=== PATIENT | female | born 1950 | race Caucasian/White ===

== ENCOUNTER → 2016-11-21 | Outpatient (CLI) | payer BC ==
[~2016-11-21] MED LIST: CALC-5 PO; CETI10TA10 PO; DASA100T PO; FLNIN NAE; MULTTAB58 PO
--- NOTE | 2016-11-21 10:35 | DIAGNOSTIC IMAGING REPORT ---
RIGHT KNEE 1 OR 2 VIEWS ROUTINE CLINICAL HISTORY: RIGHT KNEE PAIN Right trauma. Pain. COMPARISON: None. DISCUSSION: The bones and joint spaces appear intact. There is no evidence of fracture, dislocation or bony disease. There is no evidence for soft tissue swelling. IMPRESSION: Negative study. Electronically signed by: Pedro Mix M.D. 11/21/2016 10:32 AM Dictated Date/Time: 11/21/2016 10:32 AM
--- NOTE | 2016-11-21 12:01 | DIAGNOSTIC IMAGING REPORT ---
Ultrasound right axilla RIGHT EXTREMITY NONVASCULAR LIMITED CLINICAL HISTORY: LUMP ON R AXILLA/R/O CYST Right TECHNIQUE: Ultrasound COMPARISON STUDY: None FINDINGS: Ultrasound shows no evidence for well-defined mass or cyst. No significant nodular pathology based on ultrasound criteria. IMPRESSION: Negative study. In the presence of what appears be a clinically palpable nodule, diagnostic mammography is suggested, possibly with repeat ultrasound if necessary. Electronically signed by: Pedro Mix M.D. 11/21/2016 11:59 AM Dictated Date/Time: 11/21/2016 11:57 AM
== END | disposition home or self-care (01) ==
LOC: C.ULTRBC 10:15
PROVIDERS: ATTEND Nurse Practitioner Family
DX: R22.30 Localized swelling, mass and lump, unspecified upper limb (principal); M25.561 Pain in right knee; Z87.828 Personal history of other (healed) physical injury and trauma

== ENCOUNTER → 2016-12-05 | Outpatient (CLI) | payer BC ==
--- NOTE | 2016-12-05 13:32 | MAMMOGRAPHY REPORT ---
BILATERAL DIGITAL DIAGNOSTIC MAMMOGRAM TOMOSYNTHESIS WITH CAD AND TARGETED BILATERAL ULTRASOUND: 11/16 CLINICAL HISTORY: The patient reports a palpable lump in her right axillary region for a few weeks. She also had some associated burning and itching. She denies any skin erythema or other complaints . TECHNIQUE: Breast tomosynthesis in addition to standard 2D mammography was performed. Current study was also evaluated with a Computer Aided Detection (CAD) system. Bilateral CC and MLO 2-D and catia synthesis images were obtained. COMPARISON: Comparison is made to exams dated: 02/09/2015 mammogram, 06/14/2013 mammogram, 04/27/2012 mammogram, 02/24/2011 mammogram, 02/12/2010 mammogram, and 02/05/2010 mammogram - [facility]. BREAST COMPOSITION: The tissue of both breasts is heterogeneously dense, which may obscure small ma sses. FINDINGS: A triangle marker rose the site of the palpable lump in the right axilla. No suspicious masses or other suspicious findings are seen in this region mammographically. There is a newly visu alized oval 7 mm mass seen within the left medial posterior breast on the cc view only, located infe riorly based on the tomosynthesis localizer bar. The mass is located on the last image of the tomos ynthesis stack, suggesting a possible dermal location. The remainder of both breasts are stable com pared to prior exams, without suspicious masses, calcifications, or areas of architectural distortio n noted. A circumscribed benign-appearing mass in the left upper outer quadrant is stable. Bilater al benign-appearing calcifications are not significantly changed. Targeted ultrasound was performed of the area of the palpable lump pointed out by the patient, in th e right breast at approximately 10:00, 14 cm from the nipple, low axillary region. Sonographically normal tissue is seen in this region, without evidence of a mass or other suspicious sonographic abn ormality. Incidentally noted are morphologically normal right axillary lymph nodes, without evidenc e of axillary adenopathy. Targeted ultrasound was performed of the left lower inner quadrant in the region of the mammographic mass. In the left breast at 7:00, 10 cm from the nipple, there is an intradermal anechoic oval cir cumscribed 5 x 7 mm mass. This is felt to correspond with the mammographic mass and is consistent w ith a benign epidermal inclusion/sebaceous cyst. Incidentally noted in the left breast at 8:00, 7 c m from the nipple, is an oval anechoic circumscribed 6 x 4 mm mass, consistent with a benign cyst. IMPRESSION: ACR BI-RADS CATEGORY 2: BENIGN, TARGETED ULTRASOUND ACR BI-RADS CATEGORY 2: BENIGN 1. No suspicious mammographic or sonographic abnormality at the site of the palpable right breast/a xillary lump pointed out by the patient. Recommend clinical follow-up; any decision to biopsy shoul d be based on clinical grounds. 2. Benign 7 mm epidermal inclusion/sebaceous cyst in the left breast at 7:00. There is no mammographic or targeted sonographic evidence of malignancy. A 1 year screening mammogra m is recommended. The patient has been verbally notified of the results. Approximately 10% of breast cancers are not detected with mammography. A negative mammographic repor t should not delay biopsy if a clinically suggestive mass is present. Fina Hogan M.D. ah/:12/05/2016 08:48:10 Filterer: Bonnie ELKINS(Jackie)(M), [facility] letter sent: Normal 1/2 BI-RADS Code: ACR BI-RADS Category 2: Benign Ultrasound BI-RADS: ACR BI-RADS Category 2: Benign
== END | disposition home or self-care (01) ==
LOC: C.MAMM 08:09
PROVIDERS: ATTEND Nurse Practitioner Family
DX: N60.02 Solitary cyst of left breast (principal)

== ENCOUNTER → 2016-12-16 | Outpatient (CLI) | payer BC | END | disposition home or self-care (01) | LOC: C.MAMM 14:36 | PROVIDERS: ATTEND Nurse Practitioner Family | DX: M85.88 Other specified disorders of bone density and structure, other site (principal); M85.852 Other specified disorders of bone density and structure, left thigh ==